=== PATIENT | female | born 1985 | race Two or more races ===

== ENCOUNTER 2022-09-06 08:19 | Emergency (ER) | payer BC, OTHER ==
[~2022-09-06] VITALS: Ht 165.1 cm; Wt 90.7 kg
[2022-09-06 08:35] VITALS: BP 148/89
--- NOTE | 2022-09-06 08:35 | NUR ---
BIBS C/O BACK PAIN SINCE MONDAY, DENIES ANY INJURY/TRAUMA. VITALS ARE WITHIN NORMAL LIMITS. AWAITING MD CORRALES.
--- NOTE | 2022-09-06 08:39 | NUR ---
URINE COLLECTED AND SENT
[2022-09-06] MEDS ORDERED: KETOROLAC TROMETHAMINE INJ 60 MG/2 ML VIAL IM ONE (09:00)
[2022-09-06 09:10] LABS: BILIRUBIN,URINE NEGATIVE (NEGATIVE); COLOR,URINE YELLOW (YELLOW); LEUKOCYTE ESTERASE ,URINE NEGATIVE (NEGATIVE); NITRITE, URINE NEGATIVE (NEGATIVE); PH,URINE 6.5 (5.0-8.0); PROTEIN,URINE NEGATIVE (NEGATIVE); UGLUCOSE TRACE mg/dL (NEGATIVE); UROBILINOGEN,URINE 0.2 EU/dL (0.2)
[2022-09-06 09:15] LABS: BACTERIA,URINE Rare /HPF (None Seen); RBC,URINE 0-2 /HPF (0-2); SQUAMOUS EPITHELIAL CELL,UR Moderate /HPF (None Seen); WBC,URINE 0-2 /HPF (0-3)
[2022-09-06] MEDS ORDERED: KETOROLAC TROMETHAMINE INJ 30 MG/ML VIAL ONE (09:21)
[2022-09-06] MEDS ORDERED: LIDO30AD10 TP (09:23)
--- NOTE | 2022-09-06 09:26 | NUR ---
Patient discharged to home in stable condition. Written and verbal after care instructions given. Patient verbalizes understanding of instruction.
== END 2022-09-06 09:27 | disposition home or self-care (01) ==
LOC: ER 08:19
DX: M54.50 Low back pain, unspecified (principal)
CPT/HCPCS: 99283; 96372; 84703; 81001; J1885